=== PATIENT | female | born 1955 | race Caucasian/White ===

== ENCOUNTER 2021-01-21 16:27 | Emergency (ER) | payer BC, SELFPAY ==
--- NOTE | ~2021-01-21 | XR_ITS ---
EXAMINATION: XR shoulder RT min 2V DATE: 01/21/2021 17:26 INDICATION: Right shoulder pain TECHNIQUE: AP internally and externally rotated, AP oblique externally rotated and axillary views of the right shoulder were obtained. COMPARISON: None FINDINGS: Normal alignment. No fracture.Mild glenohumeral osteoarthritis with small marginal osteophytes along the inferior glenoid and humeral head. Prominent subarticular cystic change at the posterosuperior a spect of the glenoid. Mild acromioclavicular osteoarthritis. Calcified nodule in the right midlung zo ne consistent with old granulomatous disease. Soft tissues are unremarkable. IMPRESSION: Mild glenohumeral osteoarthritis with prominent subarticular cystic change at the posterior superior glenoid. Reviewed, dictated and finalized at location A. IMPRESSION: Mild glenohumeral osteoarthritis with prominent subarticular cystic change at t he posterior superior glenoid.
--- NOTE | ~2021-01-21 | XR_ITS ---
EXAMINATION:XR cervical spine 4-5V DATE: 01/21/2021 17:26 INDICATION: Neck pain TECHNIQUE: AP, lateral, lateral swimmers and odontoid views of the cervical spine are provided. COMPARISON: None FINDINGS: There is straightening of the normal cervical lordosis. Alignment is normal. The odontoid i s intact. No fracture is identified. The vertebral body heights are maintained. There is severe loss of intervertebral disc space height at C6-7 and moderate loss of intervertebral disc space height at C4-5 and C5-6. Small degenerative osteophytes project from the anterior endplates of multiple vertebr al bodies. There is severe multilevel facet and uncovertebral joint osteoarthritis. Prevertebral soft tissues are normal. IMPRESSION: 1. Severe cervical spondylosis without acute findings identified. Reviewed, dictated and finalized at location A.
[2021-01-21 16:39] VITALS: BP 143/92; PULSE 103; RESP 20; TEMP 36.7; O2SAT 97
--- NOTE | 2021-01-21 17:08 | ED.UPPEXIN ---
HPI - Extremity Injury (Upper) General Chief Complaint: Extremity Injury, Upper Stated Complaint: rt shoulder pain Time Seen by Provider: 01/21/21 16:45 Source: patient, RN notes reviewed and old records reviewed Mode of arrival: ambulatory Limitations: no limitations History of Present Illness HPI narrative: 65-year-old female presents to the [facility] with complaints of right shoulder pain for the last 3 months. States he normally applies ice or heat gets better. States over the last 3 to 4 days has gotten worse with intermittent numbness shooting down her arm. Able to move arm with full range of motion. Full range of motion of the wrist, elbow, shoulder. Strong bisque cleaner noted. Positive radial pulse. Capillary refill and sensation intact. Patient reports that she called her doctor and was told to come to the [facility] to get an x-ray. Has a history of anxiety depression, thyroid disease, hypertension Denies any direct injury. Related Data Home Medications Medication Instructions Recorded Confirmed albuterol sulfate See Rx Instructions .ROUTE .COMPLEX 01/21/21 01/21/21 escitalopram oxalate 10 mg PO DAILY 01/21/21 01/21/21 levothyroxine 137 mcg PO DAILY 01/21/21 01/21/21 [id number]-[id number]-spxaohksf 1 tablet PO DAILY 01/21/21 01/21/21 Allergies Allergy/AdvReac Type Severity Reaction Status Date / Time codeine Allergy Unknown SOB Verified 01/21/21 16:38 Penicillins Allergy Unknown Itching Verified 01/21/21 16:38 Sulfa (Sulfonamide Allergy Unknown Nausea Verified 01/21/21 16:38 Antibiotics) Review of Systems Review of Systems: All systems reviewed & are unremarkable except as noted in HPI and below Constitutional: Constitutional: Reports no additional constitutional complaints, Denies chills and Denies fever(s) Eyes: Eyes: Reports no additional eye complaints ENT: Reports system reviewed and no additional complaints, except as documented Cardiovascular: Cardiovascular: Reports no additional cardiovascular complaints and Denies chest pain Respiratory: Respiratory: Reports no additional respiratory complaints, Denies cough and Denies dyspnea Gastrointestinal: Gastrointestinal: Reports no additional gastrointestinal complaints, Denies abdominal pain, Denies nausea and Denies vomiting Musculoskeletal: Musculoskeletal: Reports as per HPI and Reports arthralgias (Right shoulder) Integumentary/Breasts: Skin/Breast: Reports system reviewed and no additional complaints, except as docu Neurologic: Reports numbness (Numbness and tingling right arm, intermittent for the last 3 to 4 days) Psychiatric: Psychiatric: Reports no additional psychiatric complaints Allergic/Immunologic: Allergic/Immunologic: Reports no additional allergic/immunologic complaints PMFSH Past Medical History Medical History Hypertension Comments At the time of my signature, I reviewed and agree with the nursing past medical, surgical, social, and family history. There is no relevant family history pertinent to the patient complaint. Exam Const: General: no acute distress, alert and ill appearing chronically Nutritional Appearance: well nourished and obese Orientation/consciousness: patient oriented x3 Limitations: no limitations HENMT: Head: normal to inspection Eyes: Conjunctivae: conjunctivae normal Pupils: Equal, round and reactive pupils present Neck: Neck: normal visual inspection, no lymphadenopathy and no meningeal signs Chest: Chest palpation & inspection: normal inspection of the chest Resp: Effort & Inspection: normal respiratory effort and no use of accessory muscles Auscultation: clear to auscultation bilaterally, no crackles, no rales, no rhonchi and no wheezes Cardio: Rate: regular rate Rhythm: regular rhythm Back/Spine/Pelvis: Back: no CVA tenderness Skin: General skin exam: normal color Rashes: no rashes Wounds: no wounds Neuro: General: patient oriented x3
== END 2021-01-21 18:10 | disposition home or self-care (01) ==
PROVIDERS: Emergency Provider Nurse Practitioner
DX: M19.011 Primary osteoarthritis, right shoulder (principal); M47.812 Spondylosis without myelopathy or radiculopathy, cervical region; I10 Essential (primary) hypertension
CPT/HCPCS: 72050; 73030; 99204; G0463

== ENCOUNTER 2022-07-24 15:45 | Emergency (ER) | payer BC, SELFPAY ==
--- NOTE | 2022-07-24 15:46 | ED.URI ---
HPI - URI/Sore Throat General Chief Complaint: Upper Respiratory Infection Stated Complaint: congested Time Seen by Provider: 07/24/22 15:46 Source: patient Mode of arrival: ambulatory Limitations: no limitations History of Present Illness HPI Narrative: patient is a 67-year-old female that presents with 3 days of productive cough. States she has to sleep with an extra pillow due to drainage down her throat and coughing. States last night she accidentally laid flat and felt a large amount of congestion in her throat. States she has a history of bronchitis and always needs an antibiotic. Patient has been taking Mucinex with no relief, and inhaler as needed. States she cannot take anything with antihistamine products in it. Denies fever, chills, nausea, vomiting, diarrhea, ear pain, sinus pressure, headache. Related Data Home Medications Medication Instructions Recorded Confirmed albuterol sulfate 90 mcg/actuation See Rx Instructions .Route .COMPLEX 01/21/21 01/21/21 aerosol inhaler escitalopram oxalate 10 mg tablet 10 mg PO DAILY 01/21/21 01/21/21 levothyroxine 137 mcg tablet 137 mcg PO DAILY 01/21/21 01/21/21 olmesartan 40 mg-amlodipine 5 1 tablet PO DAILY 01/21/21 01/21/21 mg-hydrochlorothiazide 25 mg tablet Allergies Allergy/AdvReac Type Severity Reaction Status Date / Time codeine Allergy Unknown SOB Verified 07/24/22 15:49 Penicillins Allergy Unknown Itching Verified 07/24/22 15:49 Sulfa (Sulfonamide Allergy Unknown Nausea Verified 07/24/22 15:49 Antibiotics) Review of Systems Review of Systems: All systems reviewed & are unremarkable except as noted in HPI and below Constitutional: Constitutional: Denies body ache(s), Denies chills, Denies fatigue, Denies fever(s), Denies headache(s), Denies malaise and Denies weakness Eyes: Eyes: Denies blurry vision, Denies itchy eyes and Denies loss of vision ENT: Denies otalgia, Denies headache(s), Reports nasal congestion, Denies sinus pain and Denies sore throat Cardiovascular: Cardiovascular: Denies chest pain, Denies irregular heart rhythm and Denies dyspnea Respiratory: Respiratory: Reports cough and Denies dyspnea Gastrointestinal: Gastrointestinal: Denies abdominal pain, Denies diarrhea, Denies nausea and Denies vomiting Musculoskeletal: Musculoskeletal: Denies back pain, Denies myalgias and Denies arthralgias Integumentary/Breasts: Skin/Breast: Denies pruritus and Denies rash Neurologic: Denies headache(s), Denies loss of vision and Denies weakness Psychiatric: Psychiatric: Reports no additional psychiatric complaints Endocrine: Endocrine: Denies fatigue Allergic/Immunologic: Allergic/Immunologic: Denies itchy eyes PMFSH Past Medical History Medical History Hypertension Comments At time of signature, agree with nursing past medical, surgical, social and family history. There is no relevant family history pertinent to the presenting complaint. Exam Const: General: cooperative, healthy appearing, comfortable, no acute distress and well nourished Nutritional Appearance: well nourished Orientation/consciousness: patient oriented x3 Limitations: no limitations HENMT: Head: normal to inspection, normocephalic and atraumatic Ears: hearing grossly normal bilaterally, external ears normal, TM's normal bilaterally, EAC's normal and no periauricular adenopathy Face/Nose/Sinus: Normal external nose present, normal facial exam, sinuses nontender and face symmetric Face and sinus: normal facial exam, sinuses nontender and face symmetric Mouth: Yes Normal oral and palatal mucosa present, Yes lip normal, Yes tongue normal, Yes Normal salivary glands and ducts present, Yes oropharynx normal and Yes moist mucous membranes Teeth and gingiva: dentition normal Throat: posterior oropharynx normal, tonsils normal and uvula midline Eyes: General: appearance normal, both eyes and all related structures Alignme
[2022-07-24 15:55] VITALS: BP 162/99; PULSE 116; RESP 16; TEMP 36.6; O2SAT 96
== END 2022-07-24 16:16 | disposition home or self-care (01) ==
PROVIDERS: Emergency Provider Nurse Practitioner Family
DX: J40 Bronchitis, not specified as acute or chronic (principal); I10 Essential (primary) hypertension
CPT/HCPCS: 99213; G0463